=== PATIENT | male | born 2000 | race Caucasian/White ===

== ENCOUNTER 2022-06-09 04:18 | Emergency (ER) | payer OTHER ==
[2022-06-09 05:14] VITALS: BP 142/84; PULSE 115; RESP 20; TEMP 98.1; BMI 36.6
[2022-06-09 05:31] LABS: BASO % 0.7 % (0-2.0); EOS % 0.3 % (0-4.5); HEMATOCRIT 44.2 % (35.4-49); HEMOGLOBIN 14.9 GM/dL (11.7-16.9); LYMPH % 31.5 % (8-40); MCHC 33.7 g/dl (32.0-35.9); MEAN PLT VOLUME 8.5 fl (7.5-11.1); NEUT % 57.5 % (42.8-82.8); PLATELET COUNT 262 10^3/uL (134-434); RBC 5.14 M/mm3 (4.00-5.60); RDW 14.8 % (11.9-15.9); WHITE BLOOD COUNT 6.8 K/mm3 (4.0-10.0)
[2022-06-09 05:51] LABS: CALCIUM 8.9 mg/dL (8.5-10.1)
[2022-06-09 05:52] LABS: ALBUMIN 3.9 g/dl (3.4-5.0); BLOOD UREA NITROGEN 7.4 mg/dL (7-18)
[2022-06-09 05:55] LABS: CREATININE 0.8 mg/dL (0.55-1.3)
[2022-06-09 05:56] LABS: BILIRUBIN,TOTAL 0.4 mg/dL (0.2-1); TOT PROT 7.5 g/dl (6.4-8.2)
== END 2022-06-09 06:31 | disposition home or self-care (01) ==
LOC: JER 04:18
DX: R00.2 Palpitations (principal); F41.9 Anxiety disorder, unspecified
CPT/HCPCS: 36415; 71046-TC-FY; 80053; 84443; 84484; 85025; 93005; 93010; 99285-25

== ENCOUNTER 2024-06-03 04:11 | Emergency (ER) | payer OTHER ==
[2024-06-03 04:23] VITALS: BP 138/96; PULSE 88; RESP 18; TEMP 98; BMI 33.9
[2024-06-03 06:07] LABS: BASO % 0.8 % (0-2.0); EOS % 0.4 % (0-4.5); HEMATOCRIT 45.7 % (35.4-49); HEMOGLOBIN 15.5 GM/dL (11.7-16.9); LYMPH % 52.2 % (8-40); MCH 30.3 pg (25.7-33.7); MCHC 33.9 g/dl (32.0-35.9); MEAN CELL VOLUME 89.3 fl (80-96); MONO % 8.3 % (3.8-10.2); NEUT % 38.3 % (42.8-82.8); PLATELET COUNT 267 10^3/uL (134-434); RBC 5.12 M/mm3 (4.00-5.60); RDW 13.8 % (11.9-15.9); WHITE BLOOD COUNT 6.5 K/mm3 (4.0-10.0)
[2024-06-03 06:26] LABS: POTASSIUM 3.9 mmol/L (3.5-5.1)
[2024-06-03 06:29] LABS: BLOOD UREA NITROGEN 10.3 mg/dL (7-18)
[2024-06-03 06:32] LABS: CREATININE 0.9 mg/dL (0.55-1.3)
[2024-06-03 06:34] LABS: BILIRUBIN,TOTAL 0.2 mg/dL (0.2-1); TOT PROT 7.4 g/dl (6.4-8.2)
== END 2024-06-03 09:00 | disposition home or self-care (01) ==
LOC: JER 04:11
DX: F10.129 Alcohol abuse with intoxication, unspecified (principal); Y90.8 Blood alcohol level of 240 mg/100 ml or more
CPT/HCPCS: 36415; 80053; 80307; 85025; 99283-25